=== PATIENT | female | born 2005 | race Caucasian/White ===

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

== ENCOUNTER 2023-11-19 09:02 | Outpatient (CLI) | payer BC, SELFPAY ==
--- NOTE | ~2023-11-19 | US_ITS ---
Pelvic ultrasound. Clinical History: Abnormal uterine bleeding Technique: Realtime transabdominal and transvaginal scanning of the pelvis was performed. Color flow Doppler and Doppler spectral analysis were performed. Findings: The uterus is anteverted. The endometrial stripe has a thickness of 4 mm. IUD in satisfact ory position. No focal mass is identified. The right ovary measures 3.3 x 3.0 x 2.8 cm. No significant right ovarian or adnexal mass is seen. The left ovary measures 2.2 x 3.0 x 2.3 cm. No significant left ovarian or adnexal mass is seen. There is no evidence of free fluid in the cul de sac. Impression: IUD in satisfactory position. Reviewed, dictated and finalized at location . 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
== END 2023-11-19 09:03 ==
LOC: MICIMG 09:03
PROVIDERS: PCP Nurse Practitioner; Visit Provider Nurse Practitioner
DX: N93.8 Other specified abnormal uterine and vaginal bleeding (principal); Z97.5 Presence of (intrauterine) contraceptive device
CPT/HCPCS: 76830

== ENCOUNTER 2024-02-26 14:31 | Emergency (ER) | payer BC, SELFPAY ==
[2024-02-26 14:36] VITALS: BP 135/75; PULSE 103; RESP 20; TEMP 37.2; O2SAT 100
--- NOTE | 2024-02-26 14:46 | ED.SKABFB ---
HPI - Skin/Abscess/Foreign Bdy General Chief complaint: Skin/Abscess/Foreign Body Stated complaint: hives all over History of Present Illness HPI narrative: Patient presents with an itchy rash to both of her legs hands and arms. Patient states has been there for 3 days and she is taking Benadryl for her symptoms. With minimal relief. Patient denies any shortness breath denies any change in lifestyle denies any new pets are insect bites. Related Data Home Medications Medication Instructions Recorded Confirmed cariprazine 1.5 mg capsule mg 02/26/24 (Vraylar) cariprazine 3 mg capsule (Vraylar) mg 02/26/24 clonidine HCl 0.1 mg tablet mg 02/26/24 lamotrigine 100 mg tablet mg 02/26/24 naltrexone 50 mg tablet mg 02/26/24 spironolactone 100 mg tablet mg 02/26/24 trifarotene 0.005 % topical cream topical 02/26/24 (Aklief) Allergies Allergy/AdvReac Type Severity Reaction Status Date / Time No Known Allergies Allergy Verified 02/26/24 14:42 Review of Systems Review of Systems: CONSTITUTIONAL: Denies fever, chills, or sweats. EYES: Denies visual changes, redness, or discharge. ENT: Denies rhinorrhea, congestion, sore throat, or otalgia. CARDIOVASCULAR: Denies chest pain, palpitations, or edema. RESPIRATORY: Denies cough or dyspnea. GASTROINTESTINAL: Denies abdominal pain, nausea, vomiting, or diarrhea. GENITOURINARY: Denies dysuria or hematuria. SKIN: Denies rash or itching. MUSCULOSKELETAL: Denies back pain, joint pain, or myalgia. NEUROLOGIC: Denies headache, numbness, or weakness. PSYCHIATRIC: Denies anxiety or depression. PMFSH Comments At time of signature, agree with nursing past medical, surgical, social and family history. There is no relevant family history pertinent to the presenting complaint Exam Narrative: GENERAL: Well-appearing, well-nourished, and in no acute distress. HEAD: Normocephalic, atraumatic. EYES: PERRLA and EOMI. ENT: Nares clear, no rhinorrhea or epistaxis. Mucous membranes moist. NECK: Supple. CHEST: Clear to auscultation. No respiratory distress. HEART: Regular rate and rhythm. No murmur heard. Normal peripheral pulses. ABDOMEN: Soft, nontender, nondistended, normal active bowel sounds. EXTREMITIES: Normal range of motion. No edema. SKIN: Warm, dry, no rash.o induration fluctuance or drainage. No surrounding erythremia. No lesions and TTP. No specific pattern or dermatomal distribution. Several different stages with occasional scabbing and excoriation. Spares palms and soles. Findings consistent with contact dermatitis. NEURO: No focal deficits. Alert and oriented x3. Christopher Coma Scale Eye Opening: Spontaneous 4 [place] Coma Scale Motor: Obeys Commands 6 Christopher Coma Scale Verbal: Oriented 5 [place] Coma Scale Total 15 Course Course Level of Care: Express Care Visit Vital Signs Vital signs: Vital Signs Temperature 37.2 C 02/26/24 14:36 Pulse Rate 103 H 02/26/24 14:36 Respiratory Rate 02/26/24 14:36 Blood Pressure 135/75 02/26/24 14:36 Pulse Oximetry 100 02/26/24 14:36 Oxygen Delivery Room Air 02/26/24 14:36 Temperature 37.2 C 02/26/24 14:36 Pulse Rate 103 H 02/26/24 14:36 Respiratory Rate 02/26/24 14:36 Blood Pressure 135/75 02/26/24 14:36 Pulse Oximetry 100 02/26/24 14:36 Oxygen Delivery Room Air 02/26/24 14:36 Discharge Plan Discharge Clinical Impression: Contact dermatitis, Urticaria Patient Disposition: Home, Self-Care Condition: Stable Instructions: Contact Dermatitis (DC) Additional Instructions: -Hives are usually caused by skin contact with an irritant such as plants, new foods, new medications, new personal or household products, these can also be caused by viral infection - Cool compresses can be beneficial to help with swelling and itching, please apply these for 20 minutes at a time -If there is possible contact to an allergen to the skin surface area, a shower or b
== END 2024-02-26 14:53 | disposition home or self-care (01) ==
PROVIDERS: Emergency Provider Nurse Practitioner Family
DX: L25.9 Unspecified contact dermatitis, unspecified cause (principal); L50.9 Urticaria, unspecified
CPT/HCPCS: 99213; G0463

== ENCOUNTER 2024-08-02 16:50 | Emergency (ER) | payer BC, SELFPAY ==
--- NOTE | 2024-08-02 17:10 | ED.SKABFB ---
HPI - Skin/Abscess/Foreign Bdy General Chief complaint: Upper Respiratory Infection Stated complaint: rash Time Seen by Provider: 08/02/24 17:17 Source: patient Mode of arrival: ambulatory Limitations: no limitations History of Present Illness HPI narrative: 18-year-old female presents for complaint of cough for about 3 weeks. She was treated sinus infection 07/17 with 10 days of amoxicillin. She states she has had minimal improvement in the cough and is now wheezing intermittently. She denies shortness of breath, nausea vomiting, diarrhea, fevers or lethargy. Not taking anything [id number] for symptoms. Patient vapes. Related Data Home Medications Medication Instructions Recorded Confirmed cariprazine 3 mg capsule (Vraylar) 3 mg PO DAILY 02/26/24 08/02/24 clonidine HCl 0.1 mg tablet 0.1 mg PO DAILY 02/26/24 08/02/24 lamotrigine 100 mg tablet 100 mg PO DAILY 02/26/24 08/02/24 naltrexone 50 mg tablet 50 mg PO DAILY 02/26/24 08/02/24 spironolactone 100 mg tablet 100 mg PO DAILY 02/26/24 08/02/24 trifarotene 0.005 % topical cream topical 02/26/24 (Aklief) Allergies Allergy/AdvReac Type Severity Reaction Status Date / Time No Known Allergies Allergy Verified 08/02/24 17:21 Review of Systems Review of Systems: CONSTITUTIONAL: Denies body aches, fever, chills, or sweats. EYES: Denies visual changes, redness, or discharge. ENT: Denies rhinorrhea, congestion CARDIOVASCULAR: Denies chest pain, palpitations, or edema. RESPIRATORY: reports cough wheezing denies dyspnea. GASTROINTESTINAL: Denies abdominal pain, nausea, vomiting, or diarrhea. SKIN: denies rash MUSCULOSKELETAL: Denies back pain, joint pain, or myalgia. NEUROLOGIC: Denies headache, numbness, tingling, or weakness. PMFSH Comments At time of signature, I have reviewed and agree with nursing past medical, surgical, social and family history unless otherwise noted. Please see nursing chart for further information. There is no relevant family history pertinent to the presenting complaint Exam Narrative: GENERAL: Well-appearing EYES: conjunctivae clear, and EOMI. ENT: Mucous membranes moist. Oropharynx without edema, erythema or lesions. NECK: Supple. No lymphadenopathy CHEST: Right middle lung with wheezing and rub, otherwise clear. Occasional acute care assistant cough. HEART: Regular rate and rhythm. SKIN: Warm, dry. NEURO: Alert and oriented x3. Course Course Emergency Course: Patient is aware of diagnosis, understands and agrees to treatment plan. Anticipatory guidance given. Patient agrees to follow-up as directed and is aware of reasons to seek care at the emergency department. Portions of this record may have been created with voice recognition software Level of Care: Express Care Visit Vital Signs Vital signs: Reviewed MDM - Skin/Abscess/Foreign Bdy MDM Narrative Medical decision making narrative: Discussed physical exam findings c/w pneumonia. pt declines xray at this time. Will send sharron as she just completed amox, steroid, albuterol. Advised supportive measures and signs/symptoms to go to the ER. Pt is appropriate for outpt treatment and f/u. Differential Diagnosis Differential diagnosis: Likely other (Pneumonia, asthma, influenza, covid, sinusitis, OM, strep pharyngitis, URI) Discharge Plan Discharge Clinical Impression: Acute lower respiratory tract infection Patient Disposition: Home, Self-Care Condition: Stable Instructions: Antibiotic Form, Pneumonia (ED) Additional Instructions: Pneumonia is a lung infection that can cause a fever, cough, and trouble breathing. How it spreads: When someone with bacterial pneumonia coughs, sneezes, or talks, they release respiratory droplets into the air that can be inhaled by others.?You can also get pneumonia by touching a contaminated surface or object and then touching your mouth or nose. You're generally contagious for around 48 hours after starting antibiotics and your fever goes away.? To prevent the spread of pneumonia, you can:? ? Get vaccinated? ? Wash your hands often with soap and water for 20 seconds? ? Cover your mouth with a tissue when you cough or sneeze? ? Avoid people who are already sick with pneumonia? ? Stay home when you have pneumonia Take antibiotics as directed until complete. eat small frequent meals. Get lots of rest and drink fluids. Quit smoking/vaping Tylenol and/or ibuprofen for pain or fever Recommend Flonase spray and Zyrtec (or Claritin/Jonelle) over the counter Cough syrup may cause drowsiness; avoid driving or take it at night time. Call your Primary Care Doctor and make a follow-up appointment in 3 days. Go to the ER for worsening symptoms or concerns Prescriptions: New prednisone 20 mg tablet 40 mg PO DAILY 5 Days Qty: 10 0RF albuterol sulfate 90 mcg/actuation HFA aerosol inhaler 2 inh inhalation QID PRN (Reason: shortness of breath or wheezing) Qty: 8.5 0RF azithromycin [Zithromax Z-Asif] 250 mg tablet See Rx Instructions .ROUTE .COMPLEX Qty: 6 0RF Rx Instructions: For 250 mg dose pack: take 500 mg today (day 1), then 250 mg for 4 days (days 2-5) No Action clonidine HCl 0.1 mg tablet 0.1 mg PO DAILY naltrexone 50 mg tablet 50 mg PO DAILY spironolactone 100 mg tablet 100 mg PO DAILY lamotrigine 100 mg tablet 100 mg PO DAILY Vraylar 3 mg capsule 3 mg PO DAILY Aklief 0.005 % cream TOPICAL Zyrtec 10 mg capsule 10 mg PO DAILY 14 Days Qty: 14 0RF Follow-up/Referrals: Muna,ERIK Stone [Primary Care Provider] -
[2024-08-02 17:22] VITALS: BP 116/73; PULSE 84; RESP 20; TEMP 37.3; O2SAT 100
== END 2024-08-02 17:39 | disposition home or self-care (01) ==
PROVIDERS: Emergency Provider Nurse Practitioner Family; PCP Physician Assistant
DX: J22 Unspecified acute lower respiratory infection (principal); F31.9 Bipolar disorder, unspecified
CPT/HCPCS: 99213; G0463

== ENCOUNTER 2025-05-22 01:05 | Emergency (ER) | payer BC, SELFPAY ==
--- OUTSIDE RECORDS SUMMARY | 2025-05-22 01:08 | XMS_ITS | Patient Health Record ---
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 Name Role Phone LISSETTE WIGGINS MD Primary Care Provider Emily Goel Unavailable [phone] Haylee Renteria Unavailable [phone] Daniela Mishra Unavailable [phone] Josie Ayoub Unavailable [phone] Kenneth Carroll Unavailable [phone] Allergies No Known Allergies Reason For Referral No Information Medications Medication SIG (Take, Route, Frequency, Duration) Notes Start Date End Date Status hydrOXYzine Pamoate 25 MG 1 capsule Oral ly three times a day Active lamoTRIgine 100 MG 2 tablet at bedtime Oral Once a day Active buPROPion HCl ER (XL) 150 MG 1 tablet in the morning Orally Once a day 04/10/2025 Active Naltrexone HCl 50 MG 1 tablet Oral Once a day Active valACYclovir HCl 500 MG TAKE 1 TABLET BY MOUTH EVERY DAY Oral; Duration: 90 Days Not-Taking Spironolactone 100 MG Oral 02/27/2024 Not-Taking cloNIDine HCl 0.1 MG 1 tablet Oral Once a day As needed hold if blood pressure below 110/70 Active lamoTRIgine 100 MG 2 tablet at bedtime Oral Once a day Active buPROPion HCl ER (XL) 150 MG 1 tablet in the morning Orally Once a day; Duration: 30 days Unknown Immunizations Vaccine Route Administration Date Status Comme nts Pfizer [employer]ion[employer] Covid-19 Vac cine 2nd dose Unknown 01/05/2021 Administered Pfizer [employer]ion[employer] Covid-19 Vac cine 2nd dose Unknown 01/26/2021 Administered Pfizer [employer]ion[employer] Covid-19 Vac cine 2nd dose Unknown 09/29/2021 Administered Social History Tobacco Use: Social History Observation Description Date Details (start date - stop date) Current Smoker 2020 - NA Sex Assigned At : Social History Observation Description Sex Assigned At Female Tobacco Control (Standard) Question Answer Notes Tobacco use: Current smoker When did you start smoking? 2020 How often do you smoke cigarettes? Every day How many cigarettes a day do you smoke? 5 or les s How soon after you wake up do you smoke your fir st cigarette? 6-30 minutes Are you interested in quitting? Not ready to bert t Problems Problem Type SNOMED Code ICD Code Onset Dates Problem Status W/U Status Risk Notes Problem Bipolar II disorder (99601589) Bipolar II disorder (F31.81) 024 Active confirmed Problem Severe recurrent major depression without psychotic features (43085854) Major depressive disorder, recurrent severe without psychotic features (F33.2) Active confirmed needs improvement Problem Generalized anxiety disorder (16937112) Generalized anxiety disorder (F41.1) Active confirmed well controlled, continue current therapy Problem Posttraumatic stress disorder (98145623) Post-traumatic stress disorder, chronic (F43.12) Active confirmed improving Problem Primary insomnia (7534172) Primary insomnia (F51.01) Active confirmed Problem Borderline personality disorder (19291723) Borderline personality disorder (F60.3) Active confirmed improving Problem History of attempted suicide (situation) (352090549) Personal history of suicidal behavior (Z91.51) Active confirmed Problem Nondependent cannabis abuse (060933789) Marijuana use (F12.90) Active confirmed early remission Problem Nonsuicidal self-injury (R45.88) Active confirmed well controlled, continue current therapy Problem Feeling suicidal (640767927) Passive suicidal ideations (R45.851) Active confirmed needs improvement Problem Screening for cardiovascular system disease (106985622) Encounter for screening for cardiovascular disorders (Z13.6) Inactive confirmed Problem Poor concentration (22985348) Poor concentration (R41.840) Inactive confirmed Problem Severe major depression, single episode, without psychotic features (06843067) MDD (major depressive disorder), severe (F32.2) Inactive confirmed Vital Signs Heart Rate 93 /min 05/15/2025 Height-cm 160.02 cm 05/15/2025 Blood pressure diastolic 79 mm Hg 05/15/2025 Weight-kg 61.69 kg 05/15/2025 Height 63.00 in 05/15/2025 Blood pressure systolic 122 mm Hg 05/15/2025 Weight 136 lbs 05/15/2025 BMI 24.09 kg/m2 05/15/2025 Encounters Encounter Location Date Provider Diagnosis [facility] [place] [address] [address] 06/18/2024 Haylee Renteria [facility] [place] [address] [address] 05/24/2024 Daniela Mishra Bipolar II disorder F31.81 ; Generalized anxiety disorder F41.1 ; Post-traumatic stress disorder, chronic F43.12 ; Nonsuicidal self-injury R45.88 ; Primary insomnia F51.01 and Poor concentration R41.840 [facility] [place] [address] [address] 09/14/2024 Emily Markell Bipolar II disorder F31.81 ; Generalized anxiety disorder F41.1 ; Post-traumatic stress disorder, chronic F43.12 ; Primary insomnia F51.01 and Nonsuicidal self-injury R45.88 [facility], [place] [facility] [address] 11/28/2024 Kenneth Clubb Nonsuicidal self-injury R45.88 ; Borderline personality disorder F60.3 ; MDD (major depressive disorder), severe F32.2 ; Generalized anxiety disorder F41.1 ; Post-traumatic stress disorder, chronic F43.12 and Nicotine use Z72.0 [employer] [facility], [place] [address] [address] 12/10/2024 Kenneth Clubb Nonsuicidal self-injury R45.88 ; Borderline personality disorder F60.3 ; MDD (major depressive disorder), severe F32.2 ; Generalized anxiety disorder F41.1 ; Post-traumatic stress disorder, chronic F43.12 and Nicotine use Z72.0 [employer] [facility], [place] [facility] [place] [address] 12/24/2024 Kenneth Clubb Bipolar II disorder F31.81 ; Generalized anxiety disorder F41.1 ; Primary insomnia F51.01 ; Nonsuicidal self-injury R45.88 and Encounter for screening for depression Z13.31 [email or web address], [place] [address] [place] [address] 03/06/2025 Kenneth Clubb Nonsuicidal self-injury R45.88 ; Borderline personality disorder F60.3 ; Primary insomnia F51.01 ; Generalized anxiety disorder F41.1 ; Encounter for screening for depression Z13.31 ; Encounter for screening for cardiovascular disorders Z13.6 and Nicotine use Z72.0 [email or web address], [employer] [address] [place] [address] 03/15/2025 Kenneth Clubb Nonsuicidal self-injury R45.88 ; Borderline personality disorder F60.3 ; Generalized anxiety disorder F41.1 ; Nicotine use Z72.0 ; Encounter for screening for depression Z13.31 ; Encounter for screening for cardiovascular disorders Z13.6 ; MDD (major depressive disorder), severe F32.2 ; Passive suicidal ideations R45.851 and Marijuana use F12.90 [email or web address], [employer] [address] [place] [address] 03/21/2025 Kenneth Clubb [email or web address], [employer] [address] [place] [address] 04/09/2025 Josie Ayoub Major depressive disorder, recurrent severe without psychotic features F33.2 ; Passive suicidal ideations R45.851 ; Generalized anxiety disorder F41.1 and Encounter for screening for depression Z13.31 [email or web address], [place] [address] [place] [address] 04/10/2025 Josie Hinderliter Generalized anxiety disorder F41.1 [email or web address], [employer] [address] [place] [address] 04/10/2025 Kenneth Clubb Major depressive disorder, recurrent severe without psychotic features F33.2 ; Borderline personality disorder F60.3 ; Generalized anxiety disorder F41.1 ; Post-traumatic stress disorder, chronic F43.12 ; Nicotine use Z72.0 ; Marijuana use F12.90 ; Nonsuicidal self-injury R45.88 ; Passive suicidal ideations R45.851 ; Personal history of suicidal behavior Z91.51 ; Encounter for screening for depression Z13.31 ; Encounter for screening for cardiovascular disorders Z13.6 and Alcohol use F10.90 [email or web address], [employer] [address] [facility] [address] [place] [address] 04/17/2025 Josie Ayoub Generalized anxiety disorder F41.1 [email or web address], [employer] [address] [place] [address] 04/17/2025 Kenneth Clubb Major depressive disorder, recurrent severe without psychotic features F33.2 ; Borderline personality disorder F60.3 ; Generalized anxiety disorder F41.1 ; Post-traumatic stress disorder, chronic F43.12 ; Nicotine use Z72.0 ; Marijuana use F12.90 ; Nonsuicidal self-injury R45.88 ; Passive suicidal ideations R45.851 ; Personal history of suicidal behavior Z91.51 and Alcohol use F10.90 [employer] [facility], [employer] [address] [place] [address] 04/24/2025 Josie Ayoub Generalized anxiety disorder F41.1 [email or web address], [employer] [address] [place] [address] 04/24/2025 Kenneth Clubb Major depressive disorder, recurrent severe without psychotic features F33.2 ; Borderline personality disorder F60.3 ; Generalized anxiety disorder F41.1 ; Post-traumatic stress disorder, chronic F43.12 ; Nicotine use Z72.0 ; Marijuana use F12.90 ; Nonsuicidal self-injury R45.88 ; Passive suicidal ideations R45.851 and Alcohol use F10.90 [employer] [address] [place] [address] 04/25/2025 Josie Ayoub Major depressive disorder, recurrent severe without psychotic features F33.2 ; Post-traumatic stress disorder, chronic F43.12 ; Nonsuicidal self-injury R45.88 ; Borderline personality disorder F60.3 ; Encounter for screening for depression Z13.31 and Nicotine use Z72.0 [employer] [address] [place] [address] 04/30/2025 Josie Hinderliter Borderline personali ty disorder F60.3 ; Major depressive disorder, recurrent severe without psychotic features F33.2 ; Post-traumatic stress disorder, chronic F43.12 ; Nonsuicidal self-injury R45.88 ; Encounter for screening for depression Z13.31 ; Nicotine use Z72.0 and Marijuana use F12.90 [facility] [address] [place] [address] 05/01/2025 Josie Hinderliter Generalized anxiety disorder F41.1 [facility], [employer] [address] [place] [address] 05/01/2025 Kenneth Clubb Borderline personali ty disorder F60.3 ; Major depressive disorder, recurrent severe without psychotic features F33.2 ; Post-traumatic stress disorder, chronic F43.12 ; Nonsuicidal self-injury R45.88 ; Nicotine use Z72.0 and Marijuana use F12.90 [facility], [employer] [address] [place] [address] 05/08/2025 Josie Hinderliter Generalized anxiety disorder F41.1 [facility], [employer] [address] [place] [address] 05/10/2025 Josie Hinderliter Borderline personali ty disorder F60.3 ; Major depressive disorder, recurrent severe without psychotic features F33.2 ; Post-traumatic stress disorder, chronic F43.12 and Encounter for screening for depression Z13.31 [facility], [employer] [place] [address] 05/15/2025 Josie Hinderliter Generalized anxiety disorder F41.1 [facility], [employer] [place] [address] 05/15/2025 Kenneth Clubb Borderline personali ty disorder F60.3 ; Generalized anxiety disorder F41.1 and Nonsuicidal self-injury R45.88 [facility], [employer] [address] [place] [address] 05/17/2025 Josie Hinderliter [facility] [address] [place] [address] 09/12/2024 Emilygala Guillaume [facility] [address] [place] [address] 11/28/2024 Kenneth [facility] [place] [address] [place] [address] 03/06/2025 Kenneth [facility] [place] [address] [place] [address] 04/17/2025 Emily Guillaume [facility] [place] [address] [place] [address] 04/03/2025 Emily Markell Assessments Encounter Date Diagnosis (ICD Code) Assessment Notes Treatment Notes Treatment Clinical Notes Section Notes 05/15/2025 Borderline personality disorder (ICD-10 - F60.3) 05/24/2024 Bipolar II disorder (ICD-10 - F31.81) cont vraylar 3mg dailycont lamotrigine 200mg qhs; take consistently, monitor for rash recommend minimize alcohol and cannabis stable cont current meds, education provided recommend restart with haylee, anticipate stressors with school, away from boyfriend f/u in 3 months, earlier if concerns Diff: bipolar 1 or 2 vs probable borderline personality d/o (developing) vs both; consider age; adhd testing inconclusive-see hpi 05/24/2024 Generalized anxiety disorder (ICD-10 - F41.1) cont clonidine 0.1mg BID has not been taking hydroxyzine anymore cont therapy 04/30/2025 Borderline personality disorder (ICD-10 - F60.3) improving Panic Attack Assessment: Patient experienced her first panic attack at work, triggered by a combination of workplace stressors and an argument with her ex-fiance during her lunch break. The attack manifested as uncontrollable sobbing and hyperventilatio n in front of her managers, indicating a severe anxiety response in a professional setting. This event suggests a potential exacerbation of her anxiety symptoms, possibly due to the convergence of multiple stressors including work, relationships, and academic pressures. Plan: - Develop coping strategies for managing anxiety in the workplace - Discuss boundary-settin g techniques for interactions with ex-fiance during work hours - Explore options for self-soothing techniques that can be utilized at work - Consider placing emergency medications in a pill case to keep in work locker Interpersonal Conflict Assessment: Patient reports ongoing conflict with her ex-fiance, Josr, who was previously a significant support system but now appears to be a source of stress. Their relationship has transitioned from romantic to platonic, but boundaries seem unclear. Patient acknowledges past dependency on Josr for emotional support, particularly during mental health crises, which she describes as unhealthy. Current interactions, especially during work hours, are causing emotional distress and contributing to anxiety symptoms. Plan: - Establish clear communication boundaries with ex-fiance, particularly during work hours - Explore healthier support systems and coping mechanisms to reduce dependency on ex-fiance - Discuss strategies for managing emotions and responses during interactions with ex-fiance Substance Use Assessment: Patient reports recent cessation of alcohol and smoking marijuana, motivated by parental influence. She expresses satisfaction with this decision, recognizing potential health benefits. Patient is actively avoiding environments where alcohol is present to maintain sobriety, demonstrating commitment to lifestyle changes and awareness of potential triggers. Plan: - Reinforce positive decision-making regarding substance use cessation - Discuss ongoing strategies for maintaining sobriety, including avoiding triggering environments - Explore alternative social activities that do not involve alcohol Self-Harm Behaviors Assessment: Patient reports a history of lip-picking behavior, resulting in bleeding and scabbing, particularly exacerbated during winter months. This behavior appears to be a form of self-harm or a manifestation of anxiety. The severity of the behavior, causing lips dripping blood, indicates a significant issue that requires attention and intervention. Plan: - Explore triggers and underlying emotions related to lip-picking behavior - Discuss alternative coping mechanisms to replace self-harm behaviors - Consider follow up to [facility]umper for medical management of lip condition - Implement harm reduction strategies to minimize damage when urges occur History of Eating Disorder Assessment: Patient discloses a history of bulimia, with significant weight loss (from 145 to 110 pounds within 6 months) in the past. She reports previous invalidating experiences with healthcare providers regarding her eating disorder symptoms. While current eating disorder behaviors are not explicitly mentioned, this history is relevant to her overall mental health profile and requires ongoing monitoring. Plan: - Assess current eating patterns and body image concerns - Provide psychoeducation on healthy eating habits and body image - Monitor for any re-emergence of eating disorder symptoms 11/28/2024 Nonsuicidal self-injury (ICD-10 - R45.88) 12/24/2024 Bipolar II disorder (ICD-10 - F31.81) Lamotrigine has a serious rashes requiring hospitalization and discontinue treatment includingSteven Isauro syndrome rare case of toxic epidermal necrolysis and cache related deaths.Incidence with adjunct of epilepsy treatment 0.8% in 2 to 16 years old and 0.3% in adults, bipolarand other mood disorders incidence 0.8% this initial monotherapy and 0.13% as adjunctivetreatme nt.Other risk factor may include concomitant use of valproate acid derivative or exceeding initiallamotrigin e does or does as clinician recommendation; most life-threatening rash of occurring first 2to 8 week of treatment with isolated cases after prolonged treatment; though benign may occur,discontinue treatment at first sign of rash unless clearly not a drug related; TC treatment may notprevent trash from becoming life-threatening or permanently disabling or disfiguring.Comme nt reaction include, nausea/vomiting, dizziness/vertigo , visual disturbances, somnolence,ataxia , pruritus/rash, pharyngitis, headache, rhinitis, diarrhea, fever, asthenia, insomnia, tremor,abdominal pain, cough, accidental injury, constipation, dysmenorrhea, incoordination, anxiety,seizures, irritability, anorexia, xerostomia, and photosensitivity. Serious reactions include: Rash, severe; Goff Isauro syndrome; toxic epidermal necrosis;injury edema, hypersensitivity reactions. Including fatal, multiple organ failure to safe fatal, rash witheosinophilia systemic symptoms, DIC, neutropenia, leukopenia, thrombocytopenia, pancytopenia,apla stic anemia, hemolytic anemia, i pancreatitis, hepatic failure, rhabdomyolysis, worsening ofsuicidal ideation, worsening of depression, cleft lip/palate [first trimester use]DO not Change Cosmetic, perfumes or soap for next 4 weeks.The patient was advice to take lamotrigine as prescribed the patient was instructed not to deviatefrom the prescription dosages. Stop lamotrigine is the first sign of rash. Patient was insisted to informoffice if any of the serious side effect develops. most likely borderline personality disorder. 12/24/2024 Generalized anxiety disorder (ICD-10 - F41.1) 09/14/2024 Bipolar II disorder (ICD-10 - F31.81) Assessment and Plan: bipolar disorder - states currently feeling depressed with low motivation, questions if the seaon plays a role - reports last month a period of feeling irritable, with more energy, cleaning more, shaved her head. - endorses having some shifts in mood, anger, happy, not rapidly, just prevalent. - she reports she's been on lamotrigine, never truly feeling different, but likes the vraylar, feels it makes a huge difference in mood Plan: - increase vraylar to 4.5 mg daily, in hopes to combat currently feelings of depression - continue lamotrigine 200 mg qhs, discussed potential for switching to another mood stabilizer. She questions it's effectiveness, she continues to have depressive periods, and periods that are suspicious of alix/hypomania . Has not been on another mood stabilizer previously, except one rather brief period of lithium, never really giving it a chance Anxiety/PTSD - stable, anxiety mild, manageable. Plan: - continue clonidine 0.1 mg bid insomnia - stable Nonsuicidal self-injury - some recent thoughts of self-harm, no acting on them Plan: - continue naltrexone hcl 50 mg daily follow up 4 weeks, sooner if concerns arise 03/15/2025 Nonsuicidal self-injury (ICD-10 - R45.88) 03/06/2025 Borderline personality disorder (ICD-10 - F60.3) encouraged the patient to purchase and read I Hate You, Dont Leave Me. encouraged the initiation of DBT Assessment and plan reviewed with patient Call for problems with medication, side effects or need for dosage change Compliance issues reviewed Discussed the risks/benefits of this medication Discussed medication side effects Return if symptoms worsen Treatment options reviewed. discussed that it can take weeks to see full therapeutic effects of psychotropic medications. discussed when to seek emergency services. discussed crisis prevention hotline 988. 03/06/2025 Nonsuicidal self-injury (ICD-10 - R45.88) 12/10/2024 Nonsuicidal self-injury (ICD-10 - R45.88) 11/28/2024 Borderline personality disorder (ICD-10 - F60.3) encouraged the patient to purchase and read I Hate You, Dont Leave Me. encouraged the initiation of DBT Assessment and plan reviewed with patient Call for problems with medication, side effects or need for dosage change Compliance issues reviewed Discussed the risks/benefits of this medication Discussed medication side effects Return if symptoms worsen Treatment options reviewed. discussed that it can take weeks to see full therapeutic effects of psychotropic medications. discussed when to seek emergency services. discussed crisis prevention hotline 988. 04/30/2025 Major depressive disorder, recurrent severe without psychotic features (ICD-10 - F33.2) needs improvement Panic Attack Assessment: Patient experienced her first panic attack at work, triggered by a combination of workplace stressors and an argument with her ex-fiance during her lunch break. The attack manifested as uncontrollable sobbing and hyperventilatio n in front of her managers, indicating a severe anxiety response in a professional setting. This event suggests a potential exacerbation of her anxiety symptoms, possibly due to the convergence of multiple stressors including work, relationships, and academic pressures. Plan: - Develop coping strategies for managing anxiety in the workplace - Discuss boundary-settin g techniques for interactions with ex-fiance during work hours - Explore options for self-soothing techniques that can be utilized at work - Consider placing emergency medications in a pill case to keep in work locker Interpersonal Conflict Assessment: Patient reports ongoing conflict with her ex-fiance, Josr, who was previously a significant support system but now appears to be a source of stress. Their relationship has transitioned from romantic to platonic, but boundaries seem unclear. Patient acknowledges past dependency on Josr for emotional support, particularly during mental health crises, which she describes as unhealthy. Current interactions, especially during work hours, are causing emotional distress and contributing to anxiety symptoms. Plan: - Establish clear communication boundaries with ex-fiance, particularly during work hours - Explore healthier support systems and coping mechanisms to reduce dependency on ex-fiance - Discuss strategies for managing emotions and responses during interactions with ex-fiance Substance Use Assessment: Patient reports recent cessation of alcohol and smoking marijuana, motivated by parental influence. She expresses satisfaction with this decision, recognizing potential health benefits. Patient is actively avoiding environments where alcohol is present to maintain sobriety, demonstrating commitment to lifestyle changes and awareness of potential triggers. Plan: - Reinforce positive decision-making regarding substance use cessation - Discuss ongoing strategies for maintaining sobriety, including avoiding triggering environments - Explore alternative social activities that do not involve alcohol Self-Harm Behaviors Assessment: Patient reports a history of lip-picking behavior, resulting in bleeding and scabbing, particularly exacerbated during winter months. This behavior appears to be a form of self-harm or a manifestation of anxiety. The severity of the behavior, causing lips dripping blood, indicates a significant issue that requires attention and intervention. Plan: - Explore triggers and underlying emotions related to lip-picking behavior - Discuss alternative coping mechanisms to replace self-harm behaviors - Consider follow up to [facility] for medical management of lip condition - Implement harm reduction strategies to minimize damage when urges occur History of Eating Disorder Assessment: Patient discloses a history of bulimia, with significant weight loss (from 145 to 110 pounds within 6 months) in the past. She reports previous invalidating experiences with healthcare providers regarding her eating disorder symptoms. While current eating disorder behaviors are not explicitly mentioned, this history is relevant to her overall mental health profile and requires ongoing monitoring. Plan: - Assess current eating patterns and body image concerns - Provide psychoeducation on healthy eating habits and body image - Monitor for any re-emergence of eating disorder symptoms 05/10/2025 Major depressive disorder, recurrent severe without psychotic features (ICD-10 - F33.2) Borderline Personality Disorder (BPD) Assessment: Patient exhibits characteristic BPD symptoms, including difficulty maintaining casual relationships without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 50 mg daily e. Provide printed reduction plan for patient to share with parents f. Monitor for withdrawal symptoms at follow-up 3. Sleep Disturbance - Hypersomnia - Patient reports sleeping approximately 14 hours per day. - Plan: a. start bupropion (Wellbutrin)150 mg daily b. Educate on potential side effects, including lowered seizure threshold with alcohol use c. Advise against alcohol consumption while on bupropion d. Monitor sleep patterns and adjust interventions as needed 4. Mood Symptoms - Patient reports doing pretty good right now in terms of mood. - Endorses some suicidal thoughts. - Plan: a. Continue current medication regimen: Vraylar, Naltrexone, Clonidine, Hydroxyzine b. Provide crisis prevention hotline number (173) c. Monitor mood symptoms and suicidal ideation at follow-up 5. Alcohol Use - Patient reports drinking alcohol approximately twice per week, with variable amounts. - Plan: a. Advise cessation or significant reduction of alcohol use, especially if starting bupropion b. Educate on risks of combining alcohol with psychiatric medications c. Monitor alcohol use at follow-up 04/17/2025 Other 1. Major Depressive Disorder - Patient rates depression at 8.5-9/10. - Symptoms include suicidal ideation, anhedonia, and feelings of worthlessness. - Variable sleep patterns (either 5 or 14 hours) and irregular eating habits. - Plan: a. Continue current medication except decrease vraylar to 1.5 mg b. Encourage consistent sleep schedule and regular eating patterns. c. Continue sobriety from alcohol and cannabis. d. Monitor for suicidal ideation and provide crisis resources. e. Follow up to assess medication efficacy and adjust as needed. 2. Anxiety Disorder - Patient rates anxiety at 10/10 at work, 1/10 outside of work. - Severe anxiety related to interactions with a specific coworker. - Plan: a. Decrease Vraylar to 1.5 mg b. Recommend taking hydroxyzine before group therapy sessions. c. Discuss strategies for workplace communication and boundary-setting. d. Encourage use of DBT skills, particularly mindfulness and miller mind techniques. 3. Borderline Personality Disorder (BPD) - Patient demonstrates characteristic BPD symptoms. - Current stressors triggering emotional dysregulation and maladaptive coping mechanisms. - Plan: a. Continue DBT group therapy. b. Encourage use of DBT skills for managing interpersonal conflicts and emotional regulation. c. Discuss healthy relationship boundaries and decision-making processes regarding ex-boyfriend. d. Consider individual EMDR therapy for trauma processing. 4. Substance Use - Patient maintaining sobriety from alcohol and cannabis. - Plan: a. Encourage continued sobriety. b. Monitor impact of sobriety on emotional experiences. 5. Sleep - Patient reports variable sleep patterns (either 5 or 14 hours). - Plan: a. Encourage consistent sleep schedule. 6. Appetite - Patient reports irregular eating habits. - Plan: a. Encourage regular eating patterns. 04/24/2025 Other 1. Borderline Personality Disorder (BPD) - Patient exhibits symptoms consistent with BPD, including emotional dysregulation, unstable relationships, and chronic feelings of emptiness. - Patient expresses uncertainty about BPD vs C-PTSD diagnosis. - Plan: a. Continue current medication regimen: Vraylar 1.5 , Wellbutrin 200 mg, Naltrexone, Clonidine. b. Encourage patient to maintain a symptom journal to track mood fluctuations and behaviors. c. Recommend reading assigned book on BPD for psychoeducation. d. Continue individual and group therapy sessions. 2. Depression - Patient rates depression at 5/10 with significant fluctuations. - Reports periods of feeling super depressed alternating with elevated mood. - Sleep disturbances and changes in appetite reported. - Plan: a. Continue current antidepressant regimen. b. Encourage sleep hygiene practices and recommend resetting circadian rhythm. c. Advise taking Wellbutrin early in the morning. d. Monitor for worsening of depressive symptoms or emergence of manic/hypomanic episodes. e. encourage melatonin to reset circadian rhythm. 3. Substance Use Disorder - Patient reports one episode of alcohol use since last visit, resulting in vomiting. - Expresses ongoing cravings for alcohol, particularly when alone. - Sober since April 10. - Plan: a. Continue Naltrexone b. Encourage continued engagement in support systems and avoidance of triggers. c. Reinforce the importance of abstinence in managing overall mental health. 4. Sleep Disturbances - Patient reports sleeping only 3-4 hours per night for several days. - Plan: a. Recommend establishing a consistent sleep schedule, aiming for 7-9 hours of sleep per night. b. Advise taking medications at consistent times to help regulate sleep-wake cycle. c. Encourage use of sleep hygiene practices, including limiting caffeine intake and establishing a bedtime routine. d. take wellbutrin in the morning. e. limit caffeine intake. 5. Suicidal Ideation - Patient acknowledges recent thoughts of suicide, worsened after ex-partner's visit. - Denies current plans or intent. - Plan: a. Continue to monitor suicidal ideation closely. b. Reinforce safety plan and provide crisis resources. c. Encourage patient to reach out for support when experiencing suicidal thoughts. 05/01/2025 Other 1. mood disregulation/BPD - Patient reports increased anxiety and mood instability due to work-related stress. - Recent incident of spiraling at work due to unavailable anxiety medication. - Sleep disturbances and changes in appetite noted. - Plan: a. Continue lamotrigine 200 mg and Wellbutrin 150 mg. b. plan to Discontinue Vraylar in 2 weeks. c. plan to Increase Wellbutrin dose in 2 weeks to 300 mg. d. Follow up in 2 weeks to implement medication changes. e. continue hydroxyzine. f. Encourage continuation of DBT group therapy. g. Continue individual therapy for emotional processing and support. 2. Anxiety - Patient experiences anxiety, particularly in work situations. - Recent anxiety attack at work exacerbated by lack of access to hydroxyzine. - Plan: a. Continue hydroxyzine as needed for anxiety. b. Discuss strategies for ensuring medication availability at work. c. Encourage use of DBT skills for anxiety management. 3. Sleep Disturbances - Patient reports difficulty with sleep, potentially related to irregular work hours and social activities. - Plan: a. Educate on sleep hygiene practices. b. Encourage establishing a regular sleep schedule. 4. passive suicidal thoughts - patient reports passive SI without plan/intent. a. patient aware of when to seek emergency services. b. suicide safety plan in place. c. patient aware of crisis hotline 988. 05/15/2025 Other 1. Borderline Personality Disorder (BPD) - Patient reports overall improved mood and contentment. - Depression self-rated at 3/10. - Anxiety self-rated at 2/10. - No current suicidal ideation reported. - One panic attack reported since last visit. - No hallucinations or delusions reported. - Plan: a. Continue Hydroxyzine, Wellbutrin, Naltrexone, Clonidine, and Lamictal. b. Discontinue vraylar. c. Advise against alcohol consumption while on naltrexone. d. Encourage job searching to prevent potential financial stress. e. continue group therapy and individual therapy with Josie. f. Follow up as scheduled. 2. Substance Use - Patient reports one month of sobriety from alcohol and smoking. - Patient admits to using psilocybin mushrooms twice in the past month. - Plan: a. Advise complete sobriety, including abstinence from psilocybin mushrooms. b. Continue monitoring for substance use and its impact on overall mental health. 3. Life Changes - Patient has ended a relationship with ex-fiance. - Patient has quit job without another one lined up. - Patient reports having savings to support herself for 12 months. - Plan: a. Monitor impact of life changes on mental health. b. Encourage job searching to prevent potential financial stress. Plan Of Treatment Next Appt Details Provider Name:Josie Tanya cuello, 05/22/2025 04:00:00 PM, [address], [address], [place], [address], Provider Name:Kenneth Carroll, 05/29/2025 03:15:00 PM, [address], [address], [place], [address], Provider Name:Josie Martínez khushboo, 05/29/2025 04:00:00 PM, [address], [address] [address], [place], [address], Provider Name:Josie cuello, 06/05/2025 04:00:00 PM, [address], [address] [address], [place], [address], Provider Name:Josie Martínez khushboo, 06/12/2025 04:00:00 PM, [address], [address] [address], [place], [address], Provider Name:Josie Martínez khushboo, 06/19/2025 04:00:00 PM, [address], [address] [address], [place], [address], Insurance Providers Payer Name Payer Address Payer Phone Subscriber Number Group Number Insured Name Patient Relationship to Insured Coverage Start Date Coverage End Date [facility] [address] [place] [phone] [id number] GERMAINE MARTIN Child - Insured has Financial Responsibility Medical (General) History Medical History History ICD Code Problems: Bipolar II disorder Chronic post-traumatic stress disorder Disturbance of attention Generalized anxiety disorder Primary insomnia Self-injurious behavior Severe recurrent major depression withou t psychotic features Smoker , Past Psychiatric History: Anxiety Disord er,PTSD,Bipolar Disorder undefined Surgical History Surgery Date(Month/Year) Extraction of wisdom tooth ([id number])
[2025-05-22 01:45] VITALS: BP 103/61; PULSE 74; RESP 16; TEMP 36.6; O2SAT 99
--- NOTE | 2025-05-22 01:45 | PC.NURSE ---
Spoke to JANNY Quevedo RN 1hr and 15min, BC CART outside room
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
--- NOTE | 2025-05-22 02:17 | PC.NURSE ---
Crisis support at bedside
--- NOTE | 2025-05-22 03:00 | PC.NURSE ---
BC PABLO at bedside
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
[2025-05-22 06:35] VITALS: BP 125/84; PULSE 79; RESP 16; TEMP 36.6; O2SAT 100
[2025-05-22 07:08] LABS: Syphilis IgG/IgM Antibody Non-Reactive (Nonreactive)
[2025-05-22 07:28] LABS: Trichomonas Vag PCR NOT DETECTED (NOT DETECTE)
== END 2025-05-22 06:35 | disposition home or self-care (01) ==
LOC: ANHED 03:30
PROVIDERS: Student in an Organized Health Care Education/Training Program; Emergency Provider Physician Assistant; PCP Physician Assistant
DX: T74.21XA Adult sexual abuse, confirmed, initial encounter (principal); Z11.3 Encounter for screening for infections with a predominantly sexual mode of transmission; Y07.9 Unspecified perpetrator of maltreatment and neglect
CPT/HCPCS: 36415; 86593; 87491; 87517; 87591; 87661; 99285

== ENCOUNTER 2025-09-07 09:39 | Emergency (ER) | payer BC, SELFPAY ==
[2025-09-07 09:48] VITALS: BP 118/79; PULSE 84; RESP 16; TEMP 36.6; O2SAT 100
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
== END 2025-09-07 10:50 | disposition home or self-care (01) ==
PROVIDERS: Emergency Provider Emergency Medicine
DX: L73.9 Follicular disorder, unspecified (principal)
CPT/HCPCS: 99283

== ENCOUNTER 2025-10-01 13:00 | Outpatient (CLI) | payer BC, SELFPAY ==
--- NOTE | ~2025-10-01 | US_ITS ---
EXAMINATION: US pelvic complete INDICATION: Abnormal uterine bleeding Comparison:Ultrasound dated 11/19/2023 TECHNIQUE: Multiple transabdominal and endovaginal sonographic images of the pelvis performed. FINDINGS: The uterus measures 7.9 x 3.6 x 4.2 cm. IUD in expected position within the endometrium. The endometrial complex measures 3 mm. The right ovary measures 3.4 x 1.7 x 2.7 cm and the left ovary measures 5.2 x 3.1 x 3.7 cm. There is a simple left ovarian cyst measuring 2.9 cm. There are small follicles in each ovary. Normal doppler signal in both ovaries. There is no free fluid in the pelvis. There are no abnormal masses seen on either side. IMPRESSION: 1. Simple left ovarian cyst measuring 2.9 cm. Reviewed, dictated and finalized at location O. RGIST/IMMUNOLOGIST
== END 2025-10-01 13:01 | disposition home or self-care (01) ==
DX: N93.8 Other specified abnormal uterine and vaginal bleeding (principal); N83.202 Unspecified ovarian cyst, left side
CPT/HCPCS: 76856